=== PATIENT | female | born 1990 | race Caucasian/White ===

== ENCOUNTER 2016-05-04 15:08 | Emergency (ER) | payer MEDICAID ==
[2016-05-04 15:44] VITALS: BP 134/83
--- NOTE | 2016-05-04 16:52 | UC ---
Complaint Female HPI - HPI Summary HPI Summary: LLQ pain for 3 days, no urinary sx, no fever, no nausea, vomiting or diarrhea - History Of Current Complaint Chief Complaint: UCGU Stated Complaint: GROIN PAIN Time Seen by Provider: 05/04/16 16:15 Hx Obtained From: Patient Hx Last Menstrual Period: 04/24/16 ?: No Onset/Duration: Sudden Onset, Lasting Days - 3, Still Present Timing: Constant Severity Initially: Mild Severity Currently: Mild Character: Cramping Aggravating Factor(s): Nothing Alleviating Factor(s): Nothing Associated Signs And Symptoms: Positive: Negative - Allergies/Home Medications Allergies/Adverse Reactions: Allergies Allergy/AdvReac Type Severity Reaction Status Date / Time No Known Allergies Allergy Verified 05/04/16 15:44 PMH/Surg Hx/FS Hx/Imm Hx Previously Healthy: No Endocrine History Of: Denies: Diabetes, Thyroid Disease Cardiovascular History Of: Denies: Cardiac Disorders, Hypertension, Congestive Heart Failure Respiratory History Of: Reports: Asthma, Bronchitis Denies: COPD GI/ History Of: Denies: Ulcer, Renal Disease - Surgical History Surgical History: Yes Surgery Procedure, Year, and Place: 1993 Hernia repair. gallbladder removed January 2013 - Family History Known Family History: Positive: None, Other - mother has ovarian cysts - Social History Occupation: Employed Full-time Lives: With Family Alcohol Use: Occasionally Substance Use Type: None Smoking Status (MU): Former Smoker Type: Cigarettes Have You Smoked in the Last Year: No - Immunization History Most Recent Influenza Vaccination: 04/13/14 Most Recent Tetanus Shot: 05/28/14 Most Recent Pneumonia Vaccination: never Review of Systems Constitutional: Negative Skin: Negative Eyes: Negative ENT: Negative Respiratory: Negative Cardiovascular: Negative Gastrointestinal: Abdominal Pain - LLQ pain Genitourinary: Negative Motor: Negative Neurovascular: Negative Musculoskeletal: Negative Neurological: Negative Psychological: Negative All Other Systems Reviewed And Are Negative: Yes Physical Exam Triage Information Reviewed: Yes Appearance: Well-Appearing, No Pain Distress, Well-Nourished Vital Signs: Initial Vital Signs Temp 98.2 F 05/04/16 15:39 Pulse 71 05/04/16 15:39 Resp 20 05/04/16 15:39 BP 134/83 05/04/16 15:39 Pulse Ox 100 05/04/16 15:39 Vital Signs Reviewed: Yes Eye Exam: Normal Eyes: Positive: Conjunctiva Clear ENT Exam: Normal ENT: Positive: Normal ENT inspection, Hearing grossly normal, Pharynx normal, TMs normal. Negative: Nasal congestion, Nasal drainage, Tonsillar swelling, Tonsillar exudate, Trismus, Muffled/hoarse voice Neck exam: Normal Neck: Positive: Supple, Nontender, No Lymphadenopathy Respiratory Exam: Normal Respiratory: Positive: Chest non-tender, Lungs clear, Normal breath sounds, No respiratory distress, No accessory muscle use, Respiratory distress Cardiovascular Exam: Normal Cardiovascular: Positive: RRR, No Murmur, Pulses Normal, Brisk Capillary Refill Abdominal Exam: Normal Abdomen Description: Positive: No Organomegaly, Soft, Other: - llq mild discomfort Bowel Sounds: Positive: Present Musculoskeletal Exam: Normal Musculoskeletal: Positive: Strength Intact, ROM Intact, No Edema Neurological Exam: Normal Neurological: Positive: Alert, Muscle Tone Normal Psychological Exam: Normal Psychological: Positive: Normal Response To Family, Age Appropriate Behavior Skin Exam: Normal UC Physical Exam Vital Signs On Initial Exam: Initial Vitals Temp Pulse Resp BP Pulse Ox 98.2 F 71 20 134/83 100 05/04/16 15:39 05/04/16 15:39 05/04/16 15:39 05/04/16 15:39 05/04/16 15:39 - Genitalia Exam Female Genitourinary: Normal External Exam, Normal Vaginal Exam, Left Ovary Tender - no uterine tenderness, minimal llq discomfort Diagnostics - Laboratory Diagnostic Studies Completed/Ordered: ua-25 leuks, Re-Evaluation - Re-Evaluation First Eval Change: Unchanged - tolerated vaginal examination well no cervical motion tenderness, minimal llq tenderness, offered to transfer patient to ED for further evaluation --patient refused will follow up with PCP or go to ED for Increase or Change in Symptoms Complaint Female Dx - Differential Dx/Diagnosis Differential Diagnosis/HQI/PQRI: Ovarian Cyst, Ovarian Torsion, Pelvic Inflammatory Disease, Sexually Transmitted Disease, Urinary Tract Infection Provider Diagnoses: LLQ Pain Discharge - Discharge Plan Condition: Stable Disposition: HOME Patient Education Materials: Ibuprofen (By mouth), Ovarian Cyst (ED), Pelvic Pain in Women (ED) Referrals: [facility] [Provider Group] - 2 Days No Primary Care Phys,NOPCP [Primary Care Provider] -
[2016-05-08 15:46] LABS: Mycoplasma hominis Result Negative; Mycoplasma hominis Source URINE; Ureaplasma Source URINE; Ureaplasma parvum PCR Positive; Ureaplasma urealyticum PCR Negative
== END 2016-05-04 16:58 | disposition home or self-care (01) ==
LOC: UCEAST 15:08
DX: R10.32 Left lower quadrant pain (principal); Z90.49 Acquired absence of other specified parts of digestive tract; Z87.891 Personal history of nicotine dependence
CPT/HCPCS: 87480; 87491; 87510; 87591; 87661; 87798; 99212; G0463

== ENCOUNTER 2016-06-30 16:07 | Emergency (ER) | payer MEDICAID ==
[2016-06-30 16:30] VITALS: BP 122/65
--- NOTE | 2016-06-30 17:13 | UC ---
Complaint Female HPI - HPI Summary HPI Summary: had a UTI last month was told it was ureaplasm ---has been getting uti every 2 months for the past year---now uti sx have returned - History Of Current Complaint Chief Complaint: UCGU Stated Complaint: UTI Time Seen by Provider: 06/30/16 16:34 Hx Obtained From: Patient Hx Last Menstrual Period: 06/21/16 ?: No Onset/Duration: Gradual Onset, Lasting Days - 3, Still Present Timing: Constant Severity Initially: Moderate Severity Currently: Moderate Pain Intensity: 5 Pain Scale Used: 0-10 Numeric Character: Burning Aggravating Factor(s): Urination Alleviating Factor(s): Nothing Associated Signs And Symptoms: Positive: Negative - Allergies/Home Medications Allergies/Adverse Reactions: Allergies Allergy/AdvReac Type Severity Reaction Status Date / Time No Known Allergies Allergy Verified 05/04/16 15:44 Home Medications: Home Medications Nuva Ring 1 applic VAGINAL 06/30/16 [History] PMH/Surg Hx/FS Hx/Imm Hx Previously Healthy: No Endocrine History Of: Denies: Diabetes, Thyroid Disease Cardiovascular History Of: Denies: Cardiac Disorders, Hypertension, Congestive Heart Failure Respiratory History Of: Reports: Asthma, Bronchitis Denies: COPD GI/ History Of: Denies: Ulcer, Renal Disease - Surgical History Surgical History: Yes Surgery Procedure, Year, and Place: 1993 Hernia repair. gallbladder removed January 2013 - Family History Known Family History: Positive: None, Other - mother has ovarian cysts - Social History Occupation: Employed Full-time Lives: With Family Alcohol Use: Occasionally Substance Use Type: None Smoking Status (MU): Never Smoked Tobacco Type: Cigarettes Have You Smoked in the Last Year: No - Immunization History Most Recent Influenza Vaccination: 04/13/14 Most Recent Tetanus Shot: 05/28/14 Most Recent Pneumonia Vaccination: never Review of Systems Constitutional: Negative Skin: Negative Eyes: Negative ENT: Negative Respiratory: Negative Cardiovascular: Negative Gastrointestinal: Negative Genitourinary: Dysuria, Frequency, Urgency Motor: Negative Neurovascular: Negative Musculoskeletal: Negative Neurological: Negative Psychological: Negative All Other Systems Reviewed And Are Negative: Yes Physical Exam Triage Information Reviewed: Yes Appearance: Well-Appearing, No Pain Distress, Well-Nourished Vital Signs: Initial Vital Signs Temp 98.1 F 06/30/16 16:26 Pulse 73 06/30/16 16:26 Resp 18 06/30/16 16:26 BP 122/65 06/30/16 16:26 Pulse Ox 100 06/30/16 16:26 Eye Exam: Normal Eyes: Positive: Conjunctiva Clear ENT Exam: Normal ENT: Positive: Normal ENT inspection, Hearing grossly normal. Negative: Trismus , Muffled/hoarse voice Neck exam: Normal Neck: Positive: Supple, Nontender, No Lymphadenopathy Respiratory Exam: Normal Respiratory: Positive: Chest non-tender, Lungs clear, Normal breath sounds, No respiratory distress, No accessory muscle use Cardiovascular Exam: Normal Cardiovascular: Positive: RRR, No Murmur, Pulses Normal, Brisk Capillary Refill Abdominal Exam: Normal Abdomen Description: Positive: Nontender, No Organomegaly, Soft. Negative: Bruit, CVA Tenderness (R), CVA Tenderness (L) Musculoskeletal Exam: Normal Musculoskeletal: Positive: Strength Intact, ROM Intact, No Edema Neurological Exam: Normal Neurological: Positive: Alert, Muscle Tone Normal Psychological Exam: Normal Skin Exam: Normal Diagnostics - Laboratory Diagnostic Studies Completed/Ordered: Ua--trace blood Complaint Female Dx - Course Course Of Treatment: lab specimens sent, will repeat rx of dox pending lab results increase fluids, azo, follow with urology - Differential Dx/Diagnosis Differential Diagnosis/HQI/PQRI: Pelvic Inflammatory Disease, Ureteral Stone, Urinary Tract Infection Provider Diagnoses: Dysuria Discharge - Discharge Plan Condition: Stable Disposition: HOME Prescriptions: DOXYcycline CAP(*) [DOXYcycline 100MG CAP(*)] 100 mg PO BID #20 cap Patient Education Materials: Phenazopyridine (By mouth), Urinary Tract Infection in Women (ED) Referrals: [facility] [Provider Group] - 2 Weeks No Primary Care Phys,NOPCP [Primary Care Provider] - Ronald Raphael MD [Medical Doctor] - 2 Weeks
[2016-07-04 14:15] LABS: Mycoplasma hominis Result Negative; Mycoplasma hominis Source URINE; Ureaplasma Source URINE; Ureaplasma parvum PCR Positive; Ureaplasma urealyticum PCR Negative
== END 2016-06-30 17:05 | disposition home or self-care (01) ==
LOC: UCEAST 16:07
DX: R30.0 Dysuria (principal); Z87.440 Personal history of urinary (tract) infections; Z90.49 Acquired absence of other specified parts of digestive tract; Z32.02 Encounter for pregnancy test, result negative
CPT/HCPCS: 81003; 84702; 87086; 87798; 99212; G0463

== ENCOUNTER 2016-10-09 07:23 | Emergency (ER) | payer OTHER ==
[2016-10-09 08:05] VITALS: BP 126/64
[2016-10-09] MEDS ORDERED: Fluconazole 150 MG (NF) 150 MG TAB PO ONE (08:48)
--- NOTE | 2016-10-09 10:29 | UC ---
I, Oh,Tello, scribed for River Laird MD on 10/09/16 at 1029 . Ear Complaint HPI - HPI Summary HPI Summary: This 26 y/o female presents to [facility] for left ear pain that started 1.5 weeks ago and worse since a day ago. Positive intermittent muffled hearing. left ear pain Pt had recently had dental extraction of a caries at lower jaw 2 weeks ago. Abx for 10 days. Muffled hearing. molar already removed. Negative drainage. IBP makes pain better. nonsmoker nondrinker Pt denies any ear pain before or during abstract. Tooth extraction at [facility]. - History of Current Complaint Chief Complaint: UCEar Stated Complaint: EAR PAIN Time Seen by Provider: 10/09/16 08:15 Hx Last Menstrual Period: 09/08/16 - Allergies/Home Medications Allergies/Adverse Reactions: Allergies Allergy/AdvReac Type Severity Reaction Status Date / Time No Known Allergies Allergy Verified 10/09/16 07:50 Home Medications: Home Medications Ibuprofen TAB* [Advil TAB*] 400 mg PO Q6H PRN 10/09/16 [History Confirmed ] PMH/Surg Hx/FS Hx/Imm Hx - Surgical History Surgical History: Yes Surgery Procedure, Year, and Place: 1993 Hernia repair. gallbladder removed January 2013 - Family History Known Family History: Positive: None, Other - mother has ovarian cysts - Social History Alcohol Use: Occasionally Substance Use Type: None Smoking Status (MU): Never Smoked Tobacco Type: Cigarettes Have You Smoked in the Last Year: No - Immunization History Most Recent Influenza Vaccination: 04/13/14 Most Recent Tetanus Shot: 05/28/14 Most Recent Pneumonia Vaccination: never Review of Systems All Other Systems Reviewed And Are Negative: Yes Physical Exam Triage Information Reviewed: Yes Vital Signs: Initial Vital Signs Temp 98.2 F 10/09/16 07:51 Pulse 76 10/09/16 07:51 Resp 16 10/09/16 07:51 BP 126/64 10/09/16 07:51 Pulse Ox 99 10/09/16 07:51 Vital Signs Reviewed: Yes - Additional Comments The patient is well-nourished in no acute distress and in no acute pain. The skin is warm and dry and skin color reflects adequate perfusion. HEENT: The head is normocephalic and atraumatic. The pupils are equal and reactive. The conjunctivae are clear and without drainage. Nares are patent and without drainage. Mouth reveals moist mucous membranes and the throat is without erythema and exudate. Extraction noted without any sing of infection. The external ears are intact. Mild effusion at left ear. The ear canals are patent and without drainage. The tympanic membranes are intact. Negative tenderness over mastoid. Negative swelling of face. Neck is supple with full range of motion and non-tender. There are no carotid bruits. There is no neck vein distension. Respiratory: Chest is non-tender. Lungs are clear to auscultation and breath sounds are symmetrical and equal. Cardiovascular: Hear is regular rate and rhythm. There is no murmur or rub auscultated. There is no peripheral edema and pulses are symmetrical and equal. Abdomen: The abdomen is soft and non-tender. There are normal bowel sounds heard in all four quadrants and there is no organomegaly palpated. Musculoskeletal: There is no back pain noted. Extremities are non-tender with full range of motion. There is good capillary refill. There is no peripheral edema or calf tenderness elicited. Neurological: Patient is alert and oriented to person, place and time. The patient has symmetrical motor strength in all four extremities. Cranial nerves are grossly intact. Deep tendon reflexes are symmetrical and equal in all four extremities. Psychiatric: The patient has an appropriate affect and does not exhibit any anxiety or depression. Ear Complaint Course/Dx - Differential Dx/Diagnosis Differential Diagnosis/HQI/PQRI: Otitis Media, Other - dental abscess Provider Diagnoses: 1) Left ear effusion Discharge - Discharge Plan Condition: Stable Disposition: HOME Prescriptions: Amoxicillin/Clavulanate TAB* [Augmentin TAB 875*] 875 mg PO BID #20 tab Fluconazole [Diflucan 150 MG (NF)] 150 mg PO ONCE #1 tab Patient Education Materials: Amoxicillin/Clavulanate Potassium (By mouth), Earache (ED) Forms: *School Release Referrals: Mary Kay Limon MD [Primary Care Provider] - 2 Days The documentation as recorded by the Tony arias Soohyun accurately reflects the service I personally performed and the decisions made by , River Laird MD.
--- NOTE | 2016-10-11 18:57 | UC ---
I, Oh,Tello, scribed for River Laird MD on 10/09/16 at 1036 . Ear Complaint HPI - HPI Summary HPI Summary: This 26 y/o female presents to [facility] for left ear pain that started 1.5 weeks ago and worse since a day ago. Positive intermittent muffled hearing. Pt had recently had dental extraction of a caries at lower jaw 2 weeks ago. Abx for 10 days. Pt does not have molar. IBP makes pain much better. Nonsmoker, nondrinker. Pt denies any ear pain before or during extraction. Tooth extraction was done at [facility]. - History of Current Complaint Chief Complaint: UCEar Stated Complaint: EAR PAIN Time Seen by Provider: 10/09/16 08:15 Hx Obtained From: Patient Hx Last Menstrual Period: 09/08/16 Onset/Duration: Gradual Onset, Still Present Pain Intensity: 2 Pain Scale Used: 0-10 Numeric - Allergies/Home Medications Allergies/Adverse Reactions: Allergies Allergy/AdvReac Type Severity Reaction Status Date / Time No Known Allergies Allergy Verified 10/09/16 07:50 Home Medications: Home Medications Ibuprofen TAB* [Advil TAB*] 400 mg PO Q6H PRN 10/09/16 [History Confirmed ] PMH/Surg Hx/FS Hx/Imm Hx - Surgical History Surgical History: Yes Surgery Procedure, Year, and Place: 1993 Hernia repair. gallbladder removed January 2013 - Family History Known Family History: Positive: Other - mother has ovarian cysts - Social History Alcohol Use: Occasionally Substance Use Type: None Smoking Status (MU): Never Smoked Tobacco Type: Cigarettes Have You Smoked in the Last Year: No - Immunization History Most Recent Influenza Vaccination: 04/13/14 Most Recent Tetanus Shot: 05/28/14 Most Recent Pneumonia Vaccination: never Review of Systems Constitutional: Negative Skin: Negative Eyes: Negative ENT: Ear Ache - left, Other - Muffled hearing Respiratory: Negative Cardiovascular: Negative Gastrointestinal: Negative Genitourinary: Negative Motor: Negative Neurovascular: Negative Musculoskeletal: Negative Neurological: Negative Psychological: Negative All Other Systems Reviewed And Are Negative: Yes Physical Exam Triage Information Reviewed: Yes Vital Signs: Initial Vital Signs Temp 98.2 F 10/09/16 07:51 Pulse 76 10/09/16 07:51 Resp 16 10/09/16 07:51 BP 126/64 10/09/16 07:51 Pulse Ox 99 10/09/16 07:51 Vital Signs Reviewed: Yes - Additional Comments The patient is well-nourished in no acute distress and in no acute pain. The skin is warm and dry and skin color reflects adequate perfusion. HEENT: The head is normocephalic and atraumatic. The pupils are equal and reactive. The conjunctivae are clear and without drainage. Nares are patent and without drainage. Mouth reveals moist mucous membranes and the throat is without erythema and exudate. Extraction noted without any sing of infection. The external ears are intact. Mild effusion at left ear. The ear canals are patent and without drainage. The tympanic membranes are intact. Negative tenderness over mastoid. Negative swelling of face. Neck is supple with full range of motion and non-tender. There are no carotid bruits. There is no neck vein distension. Respiratory: Chest is non-tender. Lungs are clear to auscultation and breath sounds are symmetrical and equal. Cardiovascular: Hear is regular rate and rhythm. There is no murmur or rub auscultated. There is no peripheral edema and pulses are symmetrical and equal. Abdomen: The abdomen is soft and non-tender. There are normal bowel sounds heard in all four quadrants and there is no organomegaly palpated. Musculoskeletal: There is no back pain noted. Extremities are non-tender with full range of motion. There is good capillary refill. There is no peripheral edema or calf tenderness elicited. Neurological: Patient is alert and oriented to person, place and time. The patient has symmetrical motor strength in all four extremities. Cranial nerves are grossly intact. Deep tendon reflexes are symmetrical and equal in all four extremities. Psychiatric: The patient has an appropriate affect and does not exhibit any anxiety or depression. Ear Complaint Course/Dx - Course Course Of Treatment: Vital signs reviewed and noted nml. Pt presents with left ear pain. Upon examination pt is noted with normal TM with minimal effusion. Pt is discharged with outpatient f/u with PCP. - Differential Dx/Diagnosis Differential Diagnosis/HQI/PQRI: Otitis Media, Other - dental abscess Provider Diagnoses: otitis media Discharge - Discharge Plan Condition: Stable Disposition: HOME Prescriptions: Amoxicillin/Clavulanate TAB* [Augmentin TAB 875*] 875 mg PO BID #20 tab Fluconazole [Diflucan] 1 tab PO ONCE #2 tab Patient Education Materials: Amoxicillin/Clavulanate Potassium (By mouth), Earache (ED) Forms: *School Release Referrals: Mary Kay Limon MD [Primary Care Provider] - 2 Days The documentation as recorded by the Tony arias Soohyun accurately reflects the service I personally performed and the decisions made by me, River Laird MD.
== END 2016-10-09 08:45 | disposition home or self-care (01) ==
LOC: UCEAST 07:23
DX: H65.192 Other acute nonsuppurative otitis media, left ear (principal)
CPT/HCPCS: 99212; G0463

== ENCOUNTER 2017-02-02 11:30 | Emergency (ER) | payer OTHER ==
--- NOTE | 2017-02-02 12:32 | UC ---
Respiratory Complaint HPI - HPI Summary HPI Summary: 1 WEEK OF COUGH DEEP IN HER CHEST. FEELS WHEEZY AND HAS INTERMITTENT SOB. HAS H/ O ASTHMA. NOT USING NEBS THEY MAKER HER SHAKY. IS CURRENTLY EARLY IN FIRST TRIMESTER OF . NO FEVER, ST, N/V/D. EARS FEEL PLUGGED. - History of Current Complaint Chief Complaint: UCGeneralIllness Stated Complaint: URI Time Seen by Provider: 02/02/17 12:19 Hx Obtained From: Patient Hx Last Menstrual Period: 01/06/17 Onset/Duration: Gradual Onset, Lasting Days, Still Present Severity Initially: Moderate Severity Currently: Moderate Pain Intensity: 0 Pain Scale Used: 0-10 Numeric Character: Cough: Productive Aggravating Factors: Nothing Alleviating Factors: Nothing Associated Signs And Symptoms: Positive: Dyspnea, Wheezing. Negative: Fever, Chills, Pleuritic Chest Pain, Hemoptysis, URI, Nasal Congestion, Hoarseness, Sinus Discomfort - Allergies/Home Medications Allergies/Adverse Reactions: Allergies Allergy/AdvReac Type Severity Reaction Status Date / Time No Known Allergies Allergy Verified 02/02/17 12:07 Home Medications: Home Medications Albuterol 2.5MG/3ML (0.083%)* [Ventolin 2.5 MG/3 ML NEB.CARROLL*] 2.5 mg INH Q6H PRN 02/02/17 [History Confirmed 02/02/17] PMH/Surg Hx/FS Hx/Imm Hx Respiratory History: Asthma - Surgical History Surgical History: Yes Surgery Procedure, Year, and Place: 1993 Hernia repair. gallbladder removed January 2013 - Family History Known Family History: Positive: Other - mother has ovarian cysts Negative: Hypertension - Social History Alcohol Use: None Substance Use Type: None Smoking Status (MU): Never Smoked Tobacco Type: Cigarettes Have You Smoked in the Last Year: No - Immunization History Most Recent Influenza Vaccination: 04/13/14 Most Recent Tetanus Shot: 05/28/14 Most Recent Pneumonia Vaccination: never Review of Systems Constitutional: Negative ENT: Negative Respiratory: Shortness Of Breath, Cough Cardiovascular: Negative Gastrointestinal: Negative All Other Systems Reviewed And Are Negative: Yes Physical Exam Triage Information Reviewed: Yes Appearance: Well-Appearing, No Pain Distress, Well-Nourished Vital Signs: Initial Vital Signs Temp 98.3 F 02/02/17 12:09 Pulse 77 02/02/17 12:09 Resp 22 10/13/17 12:09 BP 141/55 02/02/17 12:09 Pulse Ox 98 02/02/17 12:09 Vital Signs Reviewed: Yes Eyes: Positive: Conjunctiva Clear ENT: Positive: Hearing grossly normal, Pharynx normal, TMs normal Neck: Positive: Supple, Nontender, No Lymphadenopathy Respiratory: Positive: No respiratory distress, No accessory muscle use, Decreased breath sounds, Wheezing - DIFFUSE Cardiovascular Exam: Normal Abdomen Description: Positive: Soft Musculoskeletal: Positive: No Edema Neurological: Positive: Alert Psychological: Positive: Age Appropriate Behavior Skin: Negative: rashes UC Diagnostic Evaluation - Laboratory O2 Sat by Pulse Oximetry: 98 Respiratory Course/Dx - Course Course Of Treatment: ACCORDING TO UP TO DATE BENEFITS OF STEROIDS IN TREATMENT OF ACUTE ASTHMA SX DURING OUTWEIGH ANY POSSIBLE RISK TO FETUS. WILL TX WITH SHORT COURSE PREDNISONE AND GIVE ALBUTEROL INHALER. - Differential Dx/Diagnosis Provider Diagnoses: ACUTE BRONCHITIS WITH BRONCHOSPASM Discharge - Discharge Plan Condition: Stable Disposition: HOME Prescriptions: Albuterol HFA INHALER* [Ventolin HFA Inhaler*] 2 puff INH Q4H PRN #1 mdi PRN Reason: Shortness Of Breath predniSONE TAB* [Deltasone TAB*] 40 mg PO DAILY #10 tab Patient Education Materials: Acute Bronchitis (ED), Bronchospasm (ED) Forms: *Work Release Referrals: Mary Kay Limon MD [Primary Care Provider] - If Needed Additional Instructions: GIVEN YOUR WHEEZE AND SENSATION OF SHORTNESS OF BREATH THE BENEFITS OF TREATMENT WITH STEROIDS TO PREVENT PROGRESSION OF YOUR SYMPTOMS OUTWEIGH ANY POTENTIAL RISK TO THE FETUS. SEEK FOLLOW-UP IF YOU ARE NOT IMPROVING EXPECTED. YOUR REPEAT BP TODAY WAS 128/72 WHICH IS GOOD.
[2017-02-02 12:40] VITALS: BP 128/72
== END 2017-02-02 12:47 | disposition home or self-care (01) ==
LOC: UCEAST 11:30
DX: S73.101A Unspecified sprain of right hip, initial encounter (principal); V47.5XXA Car driver injured in collision with fixed or stationary object in traffic accident, initial encounter; Y93.9 Activity, unspecified; Y92.410 Unspecified street and highway as the place of occurrence of the external cause; Y99.9 Unspecified external cause status
CPT/HCPCS: 99212; G0463

== ENCOUNTER 2017-04-22 03:38 | Emergency (ER) | payer OTHER ==
[2017-04-22] MEDS ORDERED: NS 0.9% 1000 ML* 1,000 ML IV ONE (04:04)
[2017-04-22 04:38] LABS: Urine Appearance Cloudy; Urine Blood 3+ (Negative); Urine Color Yellow; Urine Ketones 1+ (Negative); Urine Protein 1+(30 mg/dL) (Negative); Urine Urobilinogen Negative (Negative)
[2017-04-22 04:39] LABS: ABS Basophils 0 10^3/ul (0-0.2); ABS Eosinophils 0.5 10^3/ul (0-0.6); ABS Lymphocytes 1.7 10^3/ul (1.0-4.8); ABS Monocytes 0.5 10^3/ul (0-0.8); ABS Neutrophils 4.8 10^3/ul (1.5-7.7); ABS Nucleated RBC 0.01 10^3/ul; Eosinophil % 6.4 % (0-6); Hematocrit 35 % (35-47); Hemoglobin 12.2 g/dl (12.0-16.0); Lymphocyte % 22.6 % (25-47); Mean Corpuscular HGB Conc 35 g/dl (31-36); Mean Corpuscular Hemoglobin 31 pg (27-31); Mean Corpuscular Volume 88 fL (80-97); Mean Platelet Volume 8 um3 (7.4-10.4); Nucleated Red Blood Cells % 0.1; Platelet Count 269 10^3/ul (150-450); Red Cell Distribution Width 13 % (10.5-15); White Blood Count 7.5 10^3/ul (3.5-10.8)
[2017-04-22 04:43] LABS: INR 0.92 (0.77-1.02)
[2017-04-22 04:48] LABS: EGFR Non-African American 161.5 (>60)
--- NOTE | 2017-04-22 06:12 | ED ---
Dorinda Chapin Gabriel, scribed for Francisco Jain on 04/22/17 at 0359 . Abdominal Pain/Female - HPI Summary HPI Summary: This patient is a 27 year old F presenting to [facility] accompanied by her boyfriend with a chief complaint of ABD pain since 0200 this morning. Patient reports vaginal bleeding with clots, dizziness, and cramping. Patient is 15 weeks along in her with her last sonogram being 3 weeks ago. She states the sonogram was normal, denies injury, and her due date is october 17. - History of Current Complaint Chief Complaint: EDAbdPain Stated Complaint: 15 WKS PREG/VAGINAL BLEEDING Time Seen by Provider: 04/22/17 03:48 Hx Obtained From: Patient Hx Last Menstrual Period: 01/06/17 Onset/Duration: Sudden Onset, Lasting Hours - 3, Still Present Timing: Constant Severity Initially: Moderate Severity Currently: Moderate Associated Signs and Symptoms: Positive: Other: - vaginal bleeding with clots, dizziness, and cramping Allergies/Adverse Reactions: Allergies Allergy/AdvReac Type Severity Reaction Status Date / Time No Known Allergies Allergy Verified 02/20/17 07:11 PMH/Surg Hx/FS Hx/Imm Hx Endocrine/Hematology History: Denies: Hx Diabetes, Hx Systemic Lupus Erythematosus, Hx Thyroid Disease Cardiovascular History: Denies: Hx Congestive Heart Failure, Hx Hypertension Respiratory History: Reports: Hx Asthma Denies: Hx Chronic Obstructive Pulmonary Disease (COPD) GI History: Denies: Hx Ulcer History: Reports: Other Problems/Disorders - gall stones Denies: Hx Renal Disease Musculoskeletal History: Denies: Hx Rheumatoid Arthritis Sensory History: Reports: Hx Contacts or Glasses Denies: Hx Hearing Aid Opthamlomology History: Reports: Hx Contacts or Glasses - Cancer History Hx Chemotherapy: No - Surgical History Surgery Procedure, Year, and Place: 1993 Hernia repair. gallbladder removed January 2013 Hx Anesthesia Reactions: No Infectious Disease History: No Infectious Disease History: Denies: Hx Clostridium Difficile, Hx Hepatitis, Hx Human Immunodeficiency Virus (HIV), Hx of Known/Suspected MRSA, Hx Shingles, Hx Tuberculosis, Hx Known/ Suspected VRE, Hx Known/Suspected VRSA, History Other Infectious Disease - Family History Known Family History: Positive: Other - mother has ovarian cysts Negative: Hypertension - Social History Alcohol Use: None Hx Substance Use: No Substance Use Type: Reports: None Hx Tobacco Use: No Smoking Status (MU): Never Smoked Tobacco Type: Cigarettes Have You Smoked in the Last Year: No Review of Systems Positive: other - vaginal bleeding with clots and cramping Neurological: Other - dizziness All Other Systems Reviewed And Are Negative: Yes Physical Exam - Summary Physical Exam Summary: Appearance: Well appearing, no pain distress Skin: warm, dry, reflects adequate perfusion Head/face: normal Eyes: EOMI, JORDYN ENT: normal Neck: supple, non-tender Respiratory: CTA, breath sounds present Cardiovascular: RRR, pulses symmetrical Abdomen: non-tender, soft, uterus distended Bowel: present Musculoskeletal: normal, strength/ROM intact Neuro: normal, sensory motor intact, A&Ox3 Triage Information Reviewed: Yes Vital Signs On Initial Exam: Initial Vitals BP 119/68 04/22/17 03:57 Vital Signs Reviewed: Yes Diagnostics - Vital Signs Vital Signs Pulse BP Pulse Ox 04/22/17 05:42 90 100 04/22/17 05:40 108/68 04/22/17 04:29 78 97 04/22/17 04:00 96 128/77 97 04/22/17 03:57 119/68 - Laboratory Lab Results: Lab Results 04/22/17 04/22/17 04/22/17 Range/Units 04:00 04:10 04:10 WBC 7.5 (3.5-10.8) 10^3/ul RBC 4.00 (4.0-5.4) 10^6/ul Hgb 12.2 (12.0-16.0) g/dl Hct 35 (35-47) % MCV 88 (80-97) fL MCH 31 (27-31) pg MCHC 35 (31-36) g/dl RDW 13 (10.5-15) % Plt Count 269 (150-450) 10^3/ul MPV 8 (7.4-10.4) um3 Neut % (Auto) 64.0 (38-83) % Lymph % (Auto) 22.6 L (25-47) % [place] % (Auto) 6.4 (1-9) % Eos % (Auto) 6.4 H (0-6) % Baso % (Auto) 0.6 (0-2) % Absolute Neuts (auto) 4.8 (1.5-7.7) 10^3/ul Absolute Lymphs (auto) 1.7 (1.0-4.8) 10^3/ul Absolute Monos (auto) 0.5 (0-0.8) 10^3/ul Absolute Eos (auto) 0.5 (0-0.6) 10^3/ul Absolute Basos (auto) 0 (0-0.2) 10^3/ul Absolute Nucleated RBC 0.01 10^3/ul Nucleated RBC % 0.1 INR (Anticoag Therapy) 0.92 (0.77-1.02) APTT 29.6 (26.0-36.3) seconds Sodium (133-145) mmol/L Potassium (3.5-5.0) mmol/L Chloride (101-111) mmol/L Carbon Dioxide (22-32) mmol/L Anion Gap (2-11) mmol/L BUN (6-24) mg/dL Creatinine (0.51-0.95) mg/dL Est GFR ( Amer) (>60) Est GFR (Non-Af Amer) (>60) BUN/Creatinine Ratio (8-20) Glucose (70-100) mg/dL Calcium (8.6-10.3) mg/dL Total Bilirubin (0.2-1.0) mg/dL AST (13-39) U/L ALT (7-52) U/L Alkaline Phosphatase (34-104) U/L Total Protein (6.4-8.9) g/dL Albumin (3.2-5.2) g/dL Globulin (2-4) g/dL Albumin/Globulin Ratio (1-3) Beta HCG, Quant mIU/mL Urine Color Yellow Urine Appearance Cloudy Urine pH 5.0 (5-9) Ur Specific [place] 1.030 (1.010-1.030) Urine Protein 1+(30 mg/dl) H (Negative) Urine Ketones 1+ H (Negative) Urine Blood 3+ H (Negative) Urine Nitrate Negative (Negative) Urine Bilirubin Negative (Negative) Urine Urobilinogen Negative (Negative) Ur Leukocyte Esterase Negative (Negative) Urine WBC (Auto) Trace(0-5/hpf) (Absent) Urine RBC (Auto) 1+(3-5/hpf) H (Absent) Ur Squamous Epith Cells Present H (Absent) Urine Bacteria Absent (Absent) Urine Glucose Negative (Negative) Blood Type Antibody Screen 04/22/17 04/22/17 Range/Units 04:10 04:10 WBC (3.5-10.8) 10^3/ul RBC (4.0-5.4) 10^6/ul Hgb (12.0-16.0) g/dl Hct (35-47) % MCV (80-97) fL MCH (27-31) pg MCHC (31-36) g/dl RDW (10.5-15) % Plt Count (150-450) 10^3/ul MPV (7.4-10.4) um3 Neut % (Auto) (38-83) % Lymph % (Auto) (25-47) % [place] % (Auto) (1-9) % Eos % (Auto) (0-6) % Baso % (Auto) (0-2) % Absolute Neuts (auto) (1.5-7.7) 10^3/ul Absolute Lymphs (auto) (1.0-4.8) 10^3/ul Absolute Monos (auto) (0-0.8) 10^3/ul Absolute Eos (auto) (0-0.6) 10^3/ul Absolute Basos (auto) (0-0.2) 10^3/ul Absolute Nucleated RBC 10^3/ul Nucleated RBC % INR (Anticoag Therapy) (0.77-1.02) APTT (26.0-36.3) seconds Sodium 133 (133-145) mmol/L Potassium 3.5 (3.5-5.0) mmol/L Chloride 103 (101-111) mmol/L Carbon Dioxide 23 (22-32) mmol/L Anion Gap 7 (2-11) mmol/L BUN 7 (6-24) mg/dL Creatinine 0.47 L (0.51-0.95) mg/dL Est GFR ( Amer) 207.6 (>60) Est GFR (Non-Af Amer) 161.5 (>60) BUN/Creatinine Ratio 14.9 (8-20) Glucose 99 (70-100) mg/dL Calcium 8.6 (8.6-10.3) mg/dL Total Bilirubin 0.30 (0.2-1.0) mg/dL AST 12 L (13-39) U/L ALT 10 (7-52) U/L Alkaline Phosphatase 46 (34-104) U/L Total Protein 6.5 (6.4-8.9) g/dL Albumin 3.5 (3.2-5.2) g/dL Globulin 3.0 (2-4) g/dL Albumin/Globulin Ratio 1.2 (1-3) Beta HCG, Quant 84922.00 mIU/mL Urine Color Urine Appearance Urine pH (5-9) Ur Specific [place] (1.010-1.030) Urine Protein (Negative) Urine Ketones (Negative) Urine Blood (Negative) Urine Nitrate (Negative) Urine Bilirubin (Negative) Urine Urobilinogen (Negative) Ur Leukocyte Esterase (Negative) Urine WBC (Auto) (Absent) Urine RBC (Auto) (Absent) Ur Squamous Epith Cells (Absent) Urine Bacteria (Absent) Urine Glucose (Negative) Blood Type O Positive Antibody Screen Negative Result Diagrams: 04/22/17 04:10 04/22/17 04:10 Lab Statement: Any lab studies that have been ordered have been reviewed, and results considered in the medical decision making process. Abdominal Pain Fem Course/Dx - Diagnoses Provider Diagnoses: Threatened Discharge - Discharge Plan Condition: Stable Disposition: OTHER Discharge Disposition Comment: Patient is signed out to Dr. Benitez, pending disposition, awaiting US Referrals: Mary Kay Limon MD [Primary Care Provider] - The documentation as recorded by the Dorinda arias Gabriel accurately reflects the service I personally performed and the decisions made by , Francisco Jain.
--- NOTE | 2017-04-22 08:36 | RAD ---
INDICATION: Bleeding in a pelvic female Comparison: None Multiple transabdominal real time images of the gravid uterus were obtained. This exam demonstrates a single intrauterine in the head to the right transverse presentation. heart and limb motion were noted. The heart rate was 140 beats per minute. The placenta was located anterior. There is no placenta previa. The amniotic fluid volume appeared to be within normal limits measuring up to 11.9 cm. Biparietal diameter (cm) 2.99 which corresponds to a gestational age of 15 weeks and 4 days. Head circumference (cm) 11.16 which corresponds to a gestational age of 15 weeks and 3 days. abdominal circumference(cm) 9.09 which corresponds to a gestational age of 15 weeks and 2 days. femur length (cm) 1.74 which corresponds to a gestational age of 15 weeks and 2 days. The composite estimated gestational age was 15 weeks and 3 days. The estimated weight at this time is 119 grams +/- 17 grams. IMPRESSION: Normal-appearing single intrauterine gestation with a average gestational age of 15 weeks and 3 days.
[2017-04-22 09:46] VITALS: BP 102/60
--- NOTE | 2017-04-22 10:15 | ED ---
Abundio Chapin Tecjoon, scribed for Juan Miguel Benitez MD on 04/22/17 at 0926 . Progress - Progress Note Progress Note: This patient was signed out by Dr. Jain at end of shift, awaiting US . US reveals, per radiologist, IMPRESSION: Normal-appearing single intrauterine gestation with a average gestational age of 15 weeks and 3 days. ED physician has reviewed this radiology report. Course/Dx - Course Course Of Treatment: This patient is a 27 year old F presenting to [facility] accompanied by her boyfriend with a chief complaint of ABD pain since 0200 this morning. Patient reports vaginal bleeding with clots, dizziness, and cramping. Patient is 15 weeks along in her with her last sonogram being 3 weeks ago. She states the sonogram was normal, denies injury, and her due date is october 17. Bloodwork is without significant abnormalities. US reveals, per radiologist, IMPRESSION: Normal-appearing single intrauterine gestation with a average gestational age of 15 weeks and 3 days. ED physician has reviewed this radiology report. Patient has no other complaints. She reports she has no more vaginal bleeding. Declined vaginal exam. She was instructed to be at bed rest and no intercourse until cleared by nurse midwife/clinical instructor. Patient will be discharged with a diagnosis of threatened /miscarriage. Patient will be written a note for work, until she is seen by a tub tender for clearance. - Diagnoses Provider Diagnoses: Threatened The documentation as recorded by the Abundio arias Tecjoon accurately reflects the service I personally performed and the decisions made by Emmanuel erazo Walter, MD.
== END 2017-04-22 09:45 ==
LOC: ED 03:38
DX: O20.0 Threatened abortion (principal); Z3A.15 15 weeks gestation of pregnancy
CPT/HCPCS: 36415; 76815; 80053; 81003; 81015; 84702; 85025; 85610; 85730; 86850; 86900; 86901; 99282

== ENCOUNTER 2017-06-15 16:44 | Emergency (ER) | payer OTHER ==
[2017-06-15 21:26] VITALS: BP 0/0
== END 2017-06-15 20:45 | disposition left against medical advice (07) ==
LOC: ED 16:44
DX: R11.10 Vomiting, unspecified (principal); Z53.21 Procedure and treatment not carried out due to patient leaving prior to being seen by health care provider

== ENCOUNTER 2017-09-28 16:57 | Inpatient (IN) | payer OTHER ==
[2017-09-28 17:56] LABS: Urine Appearance Clear; Urine Blood Negative (Negative); Urine Color Yellow; Urine Ketones Negative (Negative); Urine Protein Negative (Negative); Urine Specific Gravity 1.013 (1.010-1.030); Urine Urobilinogen Negative (Negative)
[2017-09-28] MEDS ORDERED: Dinoprostone* 10 MG VAG.SUPP VAGINAL ONE (18:26)
[2017-09-28 19:11] LABS: ABS Basophils 0.1 10^3/ul (0-0.2); ABS Eosinophils 0.4 10^3/ul (0-0.6); ABS Lymphocytes 3.3 10^3/ul (1.0-4.8); ABS Monocytes 0.7 10^3/ul (0-0.8); ABS Neutrophils 6.7 10^3/ul (1.5-7.7); ABS Nucleated RBC 0 10^3/ul; Eosinophil % 3.4 % (0-6); Hematocrit 36 % (35-47); Hemoglobin 12.1 g/dl (12.0-16.0); Lymphocyte % 29.9 % (25-47); Mean Corpuscular HGB Conc 34 g/dl (31-36); Mean Corpuscular Hemoglobin 29 pg (27-31); Mean Corpuscular Volume 86 fL (80-97); Mean Platelet Volume 7.6 um3 (7.4-10.4); Nucleated Red Blood Cells % 0; Platelet Count 282 10^3/ul (150-450); Red Blood Count 4.17 10^6/ul (4.0-5.4); Red Cell Distribution Width 14 % (10.5-15); White Blood Count 11.2 10^3/ul (3.5-10.8)
[2017-09-28] MEDS ORDERED: Acetaminophen TAB* 325 MG PO PRN (19:28)
--- NOTE | 2017-09-28 19:48 | HP ---
General Information - General Information Maternal Age: 27 Grav: 3 Para: 2 SAB: 0 IEA: 0 Estimated Due Date: 10/12/17 Determined By: LMP Gestational Age in Weeks and Days: 38 Weeks and 0 Days Maternal Blood Type and Rh: O Positive - Results this Serology/RPR Result: Non-Reactive Rubella Result: Immune HBsAg Result: Negative HIV Result: Negative GBS Culture Result: Negative Past Medical History Delivery History: Hx Uncomplicated Vaginal Delivery Past Medical History Comment: asthma Past Surgical History Comment: fabiola madden 01/2013, inguinal hernia repair (right) 1996 Pertinent Family History: See Records - Antepartal Records Antepartal Records: Reviewed, Complicated by: - proteinuria, headache Review of Systems Constitutional: Comfortable CV Complaint: No Respiratory: Shortness of Breath: No Genitourinary: No Leaking Fluid Musculoskeletal: No Complaint Neurological: No Visual Changes - Comments headache since 10am, not responsive to Tylenol, percocet Exam Allergies/Adverse Reactions: Allergies No Known Allergies Allergy (Verified 08/09/17 17:17) Lab Values - Entire Visit: Laboratory Tests 09/28/17 09/28/17 09/28/17 17:20 18:50 18:50 WBC 11.2 H RBC 4.17 Hgb 12.1 Hct 36 MCV 86 MCH 29 MCHC 34 RDW 14 Plt Count 282 MPV 7.6 Neut % (Auto) 60.2 Lymph % (Auto) 29.9 [place] % (Auto) 6.0 Eos % (Auto) 3.4 Baso % (Auto) 0.5 Absolute Neuts (auto) 6.7 Absolute Lymphs (auto) 3.3 Absolute Monos (auto) 0.7 Absolute Eos (auto) 0.4 Absolute Basos (auto) 0.1 Absolute Nucleated RBC 0 Nucleated RBC % 0 Urine Color Yellow Urine Appearance Clear Urine pH 7.0 Ur Specific [place] 1.013 Urine Protein Negative Urine Ketones Negative Urine Blood Negative Urine Nitrate Negative Urine Bilirubin Negative Urine Urobilinogen Negative Ur Leukocyte Esterase 1+ A Urine WBC (Auto) Trace(0-5/hpf) Urine RBC (Auto) Absent Ur Squamous Epith Cells Present A Urine Bacteria Absent Urine Glucose Negative Blood Type O Positive Antibody Screen Negative - Measurements Height: 5 ft 2 in Weight: 208 lb Weight in lbs: 208 Body Mass Index (BMI): 38.0 Pre- Weight: 220 lb Weight Gained This : -12 lbs and 0 ozs - Exam Breast: - - soft, no masses Extremities: No Edema Heart: Normal Rhythm/Heart Sounds HEENT: No Significant Findings Lungs: Clear Bilaterally Reflexes: DTR 2+ Thyroid: No Thyromegaly - Abdominal Exam Abdomen Exam: Non-Tender - Ultrasound/Biophysical Profile Ultrasound Status: Not Done Targeted Exam Findings See L&D Outpatient Visit Provider Note for Findings: N/A Estimated Weight: 7 lbs Cervical Exam: 2cm Effacement: Thick Station: -3 Presenting Part: Vertex Membrane Status: Intact EFM Findings - External Monitor Findings Baseline Heart Rate: 140 External Monitor Findings: Accelerations Present, No Pattern of Variable or Late Decelerations, Variability Moderate External Monitor Findings Comment: category 1 Contractions: Irregular, Mild Assessment/Plan - Plan Plan: Induction, Cervical Ripening Plan Comment: IUP at 38 wks with persistent headache, proteinuria Dr. Ladd recommends delivery, pt agreeable Cervidil placed at 1935 Will monitor per protocol, induce in am - Date/Time of Admission Date of Admission: 09/28/17 Time of Admission: 18:15
[2017-09-28 19:56] LABS: EGFR Non-African American 174.2 (>60); Uric Acid 5.2 mg/dL (2.3-6.6)
[2017-09-29] MEDS ORDERED: Calcium Carbonate CHEW TAB* 500 MG (TUMS) PO PRN (03:35)
[2017-09-29] MEDS ORDERED: Oxytocin in LR* 20 UNITS/1,000 ML BAG IVPB ONE (10:29)
[2017-09-29] MEDS ORDERED: Oxytocin in LR* 20 UNITS/1,000 ML BAG IVPB SCH ×3 (10:30→17:00)
[2017-09-29] MEDS ORDERED: OBEPIDURAL* 250 ML EPIDURAL ONE (11:32)
[2017-09-29] MEDS ORDERED: Famotidine TAB* 20 MG PO PRN (12:33)
[2017-09-29] MEDS ORDERED: Sodium Citrate/Citric Acid* 15 ML UDC PO PRN (12:33)
[2017-09-29] MEDS ORDERED: EPHEDrine (Pressors)* 50 MG/ML VIAL IV PUSH PRN ×2 (12:33)
[2017-09-29] MEDS ORDERED: Phenylephrine IV* 40 MCG/ML 10 ML SYRINGE IV PUSH PRN ×2 (12:33)
[2017-09-29] MEDS ORDERED: Ondansetron INJ* 2 MG/ML VIAL IV ONE (12:51)
[2017-09-29] MEDS ORDERED: OBEPIDURAL* 250 ML EPIDURAL SCH (13:00)
[2017-09-29] MEDS ORDERED: Glycerin ADULT SUPP PR PRN (16:15)
[2017-09-29] MEDS ORDERED: Dibucaine 1% 28.35 GM TUBE PR PRN (16:15)
[2017-09-29] MEDS ORDERED: Witch Hazel PAD* JAR TOPICAL PRN (16:15)
[2017-09-29] MEDS ORDERED: Acetaminophen TAB* 325 MG PO PRN (16:15)
[2017-09-29] MEDS: Ibuprofen TAB* 600 MG PO PRN ×2 (16:42→22:30)
[2017-09-29] MEDS ORDERED: Simethicone TAB* 80 MG TAB.CHEW PO SCH (17:30)
[2017-09-29] MEDS: Docusate CAP* 100 MG PO SCH (21:35)
[2017-09-30] MEDS: Ibuprofen TAB* 600 MG PO PRN ×2 (04:30→10:34)
[2017-09-30 07:32] LABS: ABS Basophils 0.1 10^3/ul (0-0.2); ABS Eosinophils 0.3 10^3/ul (0-0.6); ABS Lymphocytes 2.4 10^3/ul (1.0-4.8); ABS Monocytes 0.7 10^3/ul (0-0.8); ABS Neutrophils 6.1 10^3/ul (1.5-7.7); ABS Nucleated RBC 0 10^3/ul; Eosinophil % 3.3 % (0-6); Hematocrit 34 % (35-47); Hemoglobin 11.8 g/dl (12.0-16.0); Lymphocyte % 24.9 % (25-47); Mean Corpuscular HGB Conc 34 g/dl (31-36); Mean Corpuscular Hemoglobin 30 pg (27-31); Mean Corpuscular Volume 87 fL (80-97); Mean Platelet Volume 7.4 um3 (7.4-10.4); Nucleated Red Blood Cells % 0; Platelet Count 251 10^3/ul (150-450); Red Blood Count 3.94 10^6/ul (4.0-5.4); Red Cell Distribution Width 14 % (10.5-15); White Blood Count 9.5 10^3/ul (3.5-10.8)
[2017-09-30 08:50] VITALS: BP 102/75
[2017-09-30] MEDS ORDERED: Ferrous Gluconate TAB* 324 MG TAB PO SCH (09:00)
[2017-09-30] MEDS: Docusate CAP* 100 MG PO SCH ×2 (09:15→15:26)
== END 2017-09-30 17:18 | disposition home or self-care (01) | DRG 560 ==
LOC: MCHOBOUT 16:57 → MCHOB 18:22
PROVIDERS: ADMIT Midwife; ATTEND Midwife
PROC: 10E0XZZ Delivery of Products of Conception, External Approach (ICD-10-PCS; principal; 2017-09-29)
PROC: 3E033VJ Introduction of Other Hormone into Peripheral Vein, Percutaneous Approach (ICD-10-PCS; 2017-09-29)
PROC: 10907ZC Drainage of Amniotic Fluid, Therapeutic from Products of Conception, Via Natural or Artificial Opening (ICD-10-PCS; 2017-09-29)
DX: O14.94 Unspecified pre-eclampsia, complicating childbirth (principal); O69.89X0 Labor and delivery complicated by other cord complications, not applicable or unspecified; G44.89 Other headache syndrome; Z3A.38 38 weeks gestation of pregnancy; Z37.0 Single live birth
CPT/HCPCS: 36415; 80053; 81003; 81015; 84550; 85025; 86850; 86900; 86901; 87077; 87086; A9270-GY; J2405

== ENCOUNTER 2018-06-25 07:40 | Emergency (ER) | payer OTHER ==
[2018-06-25] MEDS ORDERED: GuaiFENesin DM* 5 ML UDC PO ONE (08:07)
--- OUTSIDE RECORDS SUMMARY | 2018-06-25 08:10 | XMS REPORT | Continuity of Care Document ---
:1990 External Reference #:[id number] Author Name Yuliana Acuna O.D. Address [address] [place] [address] Care Team Providers Name Role Phone Mary Kay Limon M.D. Primary Care Physician Unavailable Payers Date Identification Numbers Payment Provider Subscriber Policy Number: [id number] [employer] Glenna Gusman PayID: [id number] [place] [address] Advance Directives Description No Information Available Problems Date Description Provider Status Onset: Pre-eclampsia Active Onset: 06/15/2018 Myopia Yuliana Acuna O.D. Active Family History Date Family Member(s) Observation Comments Father No Current Problems Mother No Current Problems Social History Type Date Description Comments Sex Unknown Marital Status Legal Status: Occupation Clinical Asst Work Status Part-Time Employment ETOH Use Denies alcohol use Tobacco Use Start: Unknown End: Unknown Patient is a former smoker Recreational Drug Use Denies Drug Use Smoking Status Reviewed: 06/15/18 Patient is a former smoker Allergies, Adverse Reactions, Alerts Description No Known Drug Allergies Medications Medication Date Status Form Strength Qnty SIG Indications Ordering Provider Aspirin Adult Active Tablets DR 81mg Unknown Low Dose 0 Immunizations Description No Information Available Vital Signs Description No Information Available Results Description No Information Available Procedures Description No Information Available Encounters Description No Information Available Plan of Treatment Future Appointment(s):06/21/2019 11:30 am - Yuliana Acuna O.D. at [facility] MD, 06/15/2018 - Yuliana Acuna O.D.[id number] Myopia, bilateralComments: Smoking can increase the risk of developing or worsening any eye related disease , as well as affect your overall health. If you are a smoker, we strongly recommend that you quit.If you are not a smoker, we strongly recommend that you do not start. You have Myopia, or near sightedness. I have given you a prescription for glasses and contactsFollow up:1 year You can expect to have your eyes dilated at your next visit. If Dr. Acuna orders any additional testing, it may require extra time. We recommend that you bring sunglasses, as dilation drops often make you light sensitive until they wear off. We always recommend you bring someone to drive you home if you are uncomfortable driving with your eyes dilated. If you have any questions before your next visit, feel free to call our office at .
[2018-06-25] MEDS ORDERED: Albuterol HFA INHALER* 8 gm MDI INH ONE (08:53)
--- NOTE | 2018-06-25 08:56 | ED ---
Respiratory - HPI Summary HPI Summary: Patient is a 28-year-old female who presents to the ED with cough and congestion 7 days. She states she is 28 weeks . She has been using [id number] Mucinex with minimal relief. Cough is with a small amount of production intermittently. She states she takes a baby aspirin daily to prevent preeclampsia. She denies any other significant PMH. She states she is otherwise healthy. Patient is a nonsmoker. She found out she was when she was 20 weeks and just recently started care approximate 7-8 weeks ago. She endorses mild rhinorrhea, denies any headache. Denies any neck pain or photophobia. She endorses SOB, however only with coughing. - History of Current Complaint Chief Complaint: EDUpperRespComplaint Stated Complaint: SOB/COUGHING Time Seen by Provider: 06/25/18 07:45 Hx Obtained From: Patient Onset/Duration: Sudden Onset Timing: Constant Initial Severity: Moderate Current Severity: Moderate Pain Intensity: 5 Character: Wheezing, Cough (Productive) Sputum Amount: Scant Sputum Color: Clear Aggravating Factor(s): URI Alleviating Factor(s): Nothing Associated Signs and Symptoms: Negative - Risk Factors Status Asthmaticus Risk Factors: Negative Pulmonary Embolism Risk Factors: Cardiac Risk Factors: Negative Pseudomonas Risk Factors: Negative Tuberculosis Risk Factors: Negative - Allergy/Home Medications Allergies/Adverse Reactions: Allergies Allergy/AdvReac Type Severity Reaction Status Date / Time No Known Allergies Allergy Verified 06/25/18 07:41 PMH/Surg Hx/FS Hx/Imm Hx Previously Healthy: Yes Endocrine/Hematology History: Denies: Hx Diabetes, Hx Systemic Lupus Erythematosus, Hx Thyroid Disease Cardiovascular History: Denies: Hx Congestive Heart Failure, Hx Hypertension Respiratory History: Reports: Hx Asthma Denies: Hx Chronic Obstructive Pulmonary Disease (COPD) GI History: Denies: Hx Ulcer History: Reports: Other Problems/Disorders - gall stones Denies: Hx Renal Disease Musculoskeletal History: Denies: Hx Rheumatoid Arthritis Sensory History: Reports: Hx Contacts or Glasses Denies: Hx Hearing Aid Opthamlomology History: Reports: Hx Contacts or Glasses - Cancer History Hx Chemotherapy: No - Surgical History Surgery Procedure, Year, and Place: 1993 Hernia repair. gallbladder removed January 2013 Hx Anesthesia Reactions: No - Immunization History Hx Pertussis Vaccination: No Immunizations Up to Date: Yes Infectious Disease History: No Infectious Disease History: Denies: Hx Clostridium Difficile, Hx Hepatitis, Hx Human Immunodeficiency Virus (HIV), Hx of Known/Suspected MRSA, Hx Shingles, Hx Tuberculosis, Hx Known/ Suspected VRE, Hx Known/Suspected VRSA, History Other Infectious Disease, Traveled Outside the [place] in Last 30 Days - Family History Known Family History: Positive: None, Other - mother has ovarian cysts Negative: Hypertension - Social History Occupation: Employed Full-time Lives: With Family Alcohol Use: None Hx Substance Use: No Substance Use Type: Reports: None Hx Tobacco Use: No Smoking Status (MU): Former Smoker Type: Cigarettes Have You Smoked in the Last Year: No Review of Systems Constitutional: Negative Negative: Fever, Chills, Fatigue, Skin Diaphoresis Negative: Palpitations, Chest Pain Positive: Cough Negative: Abdominal Pain, Vomiting, Diarrhea, Nausea Genitourinary: Negative Positive: no symptoms reported, see HPI Negative: Arthralgia, Myalgia Skin: Negative Neurological: Negative Positive: Headache All Other Systems Reviewed And Are Negative: Yes Physical Exam Triage Information Reviewed: Yes Vital Signs On Initial Exam: Initial Vitals Temp Pulse Resp BP Pulse Ox 98.4 F 100 18 139/82 98 06/25/18 07:42 06/25/18 07:42 06/25/18 07:42 06/25/18 07:42 06/25/18 07:42 Vital Signs Reviewed: Yes Appearance: Positive: Well-Appearing, Well-Nourished Skin: Positive: Warm, Skin Color Reflects Adequate Perfusion Head/Face: Positive: Normal Head/Face Inspection Eyes: Positive: EOMI, JORDYN Respiratory/Lung Sounds: Positive: Rhonchi, Wheezes Cardiovascular: Positive: RRR, Pulses are Symmetrical in both Upper and Lower Extremities Musculoskeletal: Positive: Strength/ROM Intact Neurological: Positive: Speech Normal Psychiatric: Positive: Affect/Mood Appropriate AVPU Assessment: Alert Diagnostics - Vital Signs Vital Signs Temp Pulse Resp BP Pulse Ox 06/25/18 07:51 110 124/76 96 06/25/18 07:48 89 96 06/25/18 07:42 98.4 F 100 18 139/82 98 - Laboratory Lab Statement: Any lab studies that have been ordered have been reviewed, and results considered in the medical decision making process. Disposition - Course Course Of Treatment: Patient is evaluated for acute cough with intermittent production over the past 5-7 days. She denies any fevers, sweats, chills. She states she takes aspirin daily to prevent preeclampsia. Currently 28 weeks . She does endorse R sided back pain secondary to cough, but at this time there is a low suspician for PE as patient is currently on baby aspirin, denies SOB when not coughing, denies CP otherwise and tachy at 105. Discussed treatment options with the patient. Lungs are rhonchorous throughout and slightly wheezing. I have encouraged a chest x-ray as she is high risk for with her symptoms of tachycardia and cough 1 week. Patient agrees to this. Chest x-ray obtained and is negative for any acute cardiopulmonary findings. She is given albuterol inhaler and encouraged close follow-up with her [facility] TE[facility]. She is given robitussin while in the ED. She is tachy at 105, but otherwise VS stable. - Differential Dx - Cardiopulmonary Differential Diagnoses - Cardiopulmonary: Bronchitis, Other - Acute cough, cold symptoms, viral syndrome, pneumonia - Diagnoses Provider Diagnoses: Bronchitis Discharge - Sign-Out/Discharge Documenting (check all that apply): Patient Departure Patient Received Moderate/Deep Sedation with Procedure: No - Discharge Plan Condition: Stable Disposition: HOME Patient Education Materials: Cold Symptoms (ED) Forms: *Work Release Referrals: Mary Kay Limon MD [Primary Care Provider] - Additional Instructions: Please follow up with your OBGYN Albuterol inhaler as needed for cough You may take over the counter zinc, vitamin C and continue with your aspirin Drink plenty of fluids If cough remains persistent and severe, you may use over the counter robitussin Humidifier in the home will help - Billing Disposition and Condition Condition: STABLE Disposition: Home
[2018-06-25 09:09] VITALS: BP 114/77
== END 2018-06-25 09:09 | disposition home or self-care (01) ==
LOC: ED 07:40
DX: O26.893 Other specified pregnancy related conditions, third trimester (principal); J40 Bronchitis, not specified as acute or chronic; Z79.82 Long term (current) use of aspirin; Z3A.28 28 weeks gestation of pregnancy; Z87.891 Personal history of nicotine dependence
CPT/HCPCS: 71046; 99282; A9270-GY

== ENCOUNTER 2018-08-29 17:45 | Inpatient (IN) | payer OTHER ==
[2018-08-29] MEDS ORDERED: Buffered Lidocaine 1% SYRIN* 1 ML/SYRINGE INTRADERM ONE (18:06)
--- NOTE | 2018-08-29 18:23 | HP ---
General Information - Reason for Visit labor. Strong contractions every 2-3 min for past 2 hrs. Was 4 cm in office earlier today - General Information Maternal Age: 28 Grav: 4 Para: 3 SAB: 0 IEA: 0 Estimated Due Date: 09/14/18 Determined By: Early Ultrasound Gestational Age in Weeks/Days: 37 w 5 d Maternal Blood Type and Rh: O Positive - Results this Serology/RPR Result: Non-Reactive Rubella Result: Immune HBsAg Result: Negative HIV Result: Negative GBS Culture Result: Negative Past Medical History Delivery History: Hx Uncomplicated Vaginal Delivery - hx preeclampsia Past Medical History Comment: asthma eczema seasonal allergies Past Surgical History Comment: R inguinal hernia repair 1996 Lap maryanne 01/2013 Pertinent Family History: See Records Family History Comment: diabetes - Antepartal Records Antepartal Records: Reviewed, Complicated by: - with IUD in place, Review of Systems Constitutional: Uncomfortable CV Complaint: No Respiratory: Shortness of Breath: No Gastrointestinal: No Nausea/Vomiting, Normal Bowel Movement Genitourinary: No Leaking Fluid Musculoskeletal: Contractions Neurological: Headache - intermittent Movement: Normal Exam Allergies/Adverse Reactions: Allergies No Known Allergies Allergy (Verified 06/25/18 07:41) - Measurements Height: 5 ft 2 in Weight: 201 lb Weight in lbs: 201.995456 Body Mass Index (BMI): 36.7 Pre- Weight: 220 lb Weight Gained This : -19 lbs and 0 ozs - Exam Breast: - - soft, no masses Extremities: No Edema Heart: Normal Rhythm/Heart Sounds HEENT: No Significant Findings Lungs: Clear Bilaterally Reflexes: DTR 2+ Thyroid: No Thyromegaly - Ultrasound/Biophysical Profile Ultrasound Status: Not Done Targeted Exam Findings Estimated Weight: 6.5 lbs Cervical Exam: 5cm Effacement: 80% Station: 0 Presenting Part: Vertex Membrane Status: Intact EFM Findings - External Monitor Findings Baseline Heart Rate: 120 External Monitor Findings: Accelerations Present, No Pattern of Variable or Late Decelerations, Variability Moderate, Baseline Stable External Monitor Findings Comment: category 1 Contractions: Regular, Moderate, 45-90 Seconds Contraction Frequency: 3 min Assessment/Plan - Assessment multigravida at 37 w 5 d in active labor - Obstetrical Risk Factors Risk Factors Comment: IUD in place - Plan Plan: Admit - Anticipate Vaginal Delivery - wants epidural - Date/Time of Admission Date of Admission: 08/29/18 Time of Admission: 18:05
[2018-08-29 18:28] LABS: ABS Basophils 0.1 10^3/ul (0-0.2); ABS Eosinophils 0.2 10^3/ul (0-0.6); ABS Lymphocytes 2.5 10^3/ul (1.0-4.8); ABS Monocytes 0.5 10^3/ul (0-0.8); ABS Neutrophils 6.2 10^3/ul (1.5-7.7); Eosinophil % 2.2 %; Hematocrit 34 % (35-47); Hemoglobin 11.8 g/dL (12.0-16.0); Lymphocyte % 26.7 %; Mean Corpuscular HGB Conc 35 g/dL (31-36); Mean Corpuscular Hemoglobin 31 pg (27-31); Mean Corpuscular Volume 89 fL (80-97); Mean Platelet Volume 7.9 fL (7.4-10.4); Platelet Count 268 10^3/uL (150-450); Red Cell Distribution Width 14 % (10.5-15); White Blood Count 9.5 10^3/uL (3.5-10.8)
[2018-08-29] MEDS: Lactated Ringers 1000 ML Bag* 1,000 ML IV ONE ×3 (18:31→20:26)
--- NOTE | 2018-08-29 18:44 | PN ---
Progress Note - Progress Note Date of Service: 08/29/18 Note: Contractions every 2-3 min Cervix: 5-6 cm, 80%, vtx 0 AROM 1841 clear fluid Will consult re epidural when pt desires
[2018-08-29] MEDS ORDERED: Lactated Ringers 1000 ML Bag* 1,000 ML IV SCH ×3 (19:00→23:45)
[2018-08-29] MEDS ORDERED: OBEPIDURAL* 250 ML EPIDURAL ONE (19:13)
[2018-08-29] MEDS ORDERED: fentaNYL* 50 MCG/ML 2 ML VIAL (100 MCG VIAL) ONE (19:22)
[2018-08-29] MEDS ORDERED: Phenylephrine 40 MCG/ML SYRINGE IV PUSH PRN ×2 (19:47)
[2018-08-29] MEDS ORDERED: Lactated Ringers 1000 ML Bag* 1,000 ML IV ONE (19:47)
[2018-08-29] MEDS ORDERED: Sodium Citrate/Citric Acid* 15 ML UDC PO PRN (19:47)
[2018-08-29] MEDS ORDERED: Famotidine TAB* 20 MG PO PRN (19:47)
[2018-08-29] MEDS ORDERED: OBEPIDURAL* 250 ML EPIDURAL SCH (20:00)
[2018-08-29] MEDS ORDERED: diPHENhydraMINE IV* 50 MG/ML 1 ml VIAL (BENADRYL) IV PRN (20:14)
[2018-08-29] MEDS ORDERED: Ondansetron INJ* 2 MG/ML VIAL ONE (20:17)
[2018-08-29] MEDS ORDERED: diPHENhydraMINE IV* 50 MG/ML 1 ml VIAL (BENADRYL) ONE (20:17)
[2018-08-29] MEDS ORDERED: Oxytocin in LR* 20 UNITS/1,000 ML BAG IVPB SCH (21:00)
[2018-08-29] MEDS ORDERED: Glycerin ADULT SUPP PR PRN (23:41)
[2018-08-29] MEDS ORDERED: Witch Hazel PAD* JAR TOPICAL PRN (23:41)
[2018-08-29] MEDS ORDERED: Acetaminophen TAB* 325 MG PO PRN (23:41)
[2018-08-29] MEDS ORDERED: ceFOXitin 2 GM IVPREMIX* 2 GM/50 ML BAG IVPB ONE (23:50)
--- NOTE | 2018-08-30 00:04 | PROCNOTE ---
[facility] OB: Delivery Note - Delivery A Date of : 08/29/18 Time of : 22:53 [place] Sex: Male Score 1 Minute: 9 Score 5 Minutes: 9 Gestational Age in Weeks and Days at Delivery: 37 Weeks and 5 Days Delivery Method: Spontaneous Vaginal Labor: Spontaneous Did Patient attempt ?: N/A, No Previous Amniotic Fluid: Clear Estimated Blood Loss: 300 Anesthesia/Analgesia: CEI for Labor Anesthesia Comment: Dr. Burk Delivered By: Mara Quigley - Nursery Level of Nursery: Regular/Bedside - Perineum Perineal Injury: None/Intact - Events Delivery Events of Note: Retained Placenta, Manual Removal of Placenta - by Dr. Kwong - Additional Delivery Notes Additional Delivery Notes: SVB LMC, OA, over intact perineum at 2253. pink with stimulation. Cervix presenting at introitus immediately after delivery. No signs of placental separation by 10 minutes, pt not bleeding, but Dr. Kwong called to come in. Pt with episode of bleeding (100cc) at approx 2315, attempt at manual removal by me without success, but bleeding stopped. Manual removal of placenta by Dr. Kwong, see his note
[2018-08-30] MEDS: Ibuprofen TAB* 600 MG PO PRN ×4 (01:11→23:26)
[2018-08-30] MEDS: Oxytocin in LR* 20 UNITS/1,000 ML BAG IVPB SCH ×2 (01:30→08:21)
[2018-08-30 07:25] LABS: ABS Eosinophils 0.2 10^3/ul (0-0.6); ABS Monocytes 0.5 10^3/ul (0-0.8); ABS Neutrophils 6.9 10^3/ul (1.5-7.7); Eosinophil % 1.6 %; Hematocrit 29 % (35-47); Hemoglobin 9.9 g/dL (12.0-16.0); Lymphocyte % 21.1 %; Mean Corpuscular HGB Conc 34 g/dL (31-36); Mean Corpuscular Hemoglobin 30 pg (27-31); Mean Corpuscular Volume 90 fL (80-97); Mean Platelet Volume 7.6 fL (7.4-10.4); Platelet Count 223 10^3/uL (150-450); Red Blood Count 3.25 10^6 /uL (3.70-4.87); Red Cell Distribution Width 13 % (10.5-15); White Blood Count 9.6 10^3/uL (3.5-10.8)
[2018-08-30] MEDS: Docusate CAP* 100 MG PO SCH ×3 (08:21→20:38)
[2018-08-30] MEDS: Ferrous Gluconate TAB* 324 MG TAB PO SCH ×2 (11:00→20:38)
[2018-08-31] MEDS: Ibuprofen TAB* 600 MG PO PRN (08:24)
[2018-08-31] MEDS: Ferrous Gluconate TAB* 324 MG TAB PO SCH (08:24)
[2018-08-31] MEDS: Docusate CAP* 100 MG PO SCH (08:24)
[2018-08-31 14:41] VITALS: BP 118/55
== END 2018-08-31 13:23 | disposition home or self-care (01) | DRG 541 ==
LOC: MCHOBOUT 17:45 → MCHOB 18:05
PROVIDERS: ADMIT Midwife; ATTEND Midwife
PROC: 10E0XZZ Delivery of Products of Conception, External Approach (ICD-10-PCS; principal; 2018-08-29)
PROC: 10907ZC Drainage of Amniotic Fluid, Therapeutic from Products of Conception, Via Natural or Artificial Opening (ICD-10-PCS; 2018-08-29)
PROC: 10D17Z9 Manual Extraction of Products of Conception, Retained, Via Natural or Artificial Opening (ICD-10-PCS; 2018-08-29)
DX: O60.23X0 Term delivery with preterm labor, third trimester, not applicable or unspecified (principal); O72.2 Delayed and secondary postpartum hemorrhage; Z37.0 Single live birth; O90.81 Anemia of the puerperium; D64.9 Anemia, unspecified; Z3A.37 37 weeks gestation of pregnancy
CPT/HCPCS: 36415; 85025; 86850; 86900; 86901; A9270-GY; J0694; J1200; J2405; J3010

== ENCOUNTER → 2018-11-01 08:58 | Day surgery (SDC) | payer OTHER ==
[~2018-11-01 08:58] MED LIST: Buffered Lidocaine 1% SYRIN* 1 ML/SYRINGE INTRADERM ONE; Bupivacaine 0.5%* 50 ML VIAL ONE; Dexamethasone IV* 4 MG/ML 1 ML (4 MG) IV SLOW PU ONE; Dexamethasone IV* 4 MG/ML 1 ML (4 MG) ONE; DiMENhydriNATE IV* 50 MG/ML VIAL IV PUSH PRN; DiMENhydriNATE IV* 50 MG/ML VIAL ONE; Famotidine IV* 10 MG/ML 2 ML (20 mg) IV ONE; Famotidine IV* 10 MG/ML 2 ML (20 mg) ONE; Glycopyrrolate IV* 0.2 MG/ML 1 ML VIAL ONE; Lactated Ringers 1000 ML Bag* 1,000 ML IV SCH; Lidocaine 2% PF * 5 ML VIAL ONE; Midazolam* 1 MG/ML 2 ML VIAL (2 MG) ONE; Naloxone* 0.4 MG/ML 1 ML VIAL IV PRN; Neostigmine Methylsulfate* 3 MG/3 ML SYRINGE ONE; Propofol* 10 MG/ML 20 ML BTL ONE; Rocuronium* 10 MG/ML VIAL ONE; diPHENhydraMINE IV* 50 MG/ML 1 ml VIAL (BENADRYL) ONE; fentaNYL* 50 MCG/ML 2 ML VIAL (100 MCG VIAL) IV PRN; fentaNYL* 50 MCG/ML 2 ML VIAL (100 MCG VIAL) ONE
--- NOTE | 2018-11-01 13:13 | OP ---
DATE OF OPERATION: 11/01/18 - [facility] DATE OF : 89 SURGEON: Darren Kwong MD ANESTHESIA: General endotracheal tube. PRE-OP DIAGNOSIS: Permanent sterilization and retained placenta. POST-OP DIAGNOSIS: Permanent sterilization and retained placenta, lost IUD and pelvic omental adhesions. OPERATIVE PROCEDURE: D and C, hysteroscopy, MyoSure resection of retained placenta and laparoscopy, bilateral tubal fulguration, and removal of lost ICD from the peritoneum and adhesiolysis. FINDINGS: On exam under anesthesia, uterus had second-degree prolapse. Cervix , vagina, and vulva appeared normal. On hysteroscopy, in the posterior aspect of the uterine endometrium, there was increased tissue that appeared to be placental in origin, rest of the cavity appeared normal. On laparoscopy, the anterior bladder flap contained a foreign body reaction with what appeared to be an IUD and an IUD string sticking out of it. The uterus appeared normal. Both fallopian tubes normal. The ovaries appeared normal. DESCRIPTION OF PROCEDURE: The patient was identified, procedure identified as a D and C, hysteroscopy, MyoSure, and laparoscopic tubal ligation. The patient was taken to the operating room, prepped and draped in the usual fashion in the dorsal lithotomy position under general anesthesia. Two single-tooth tenaculums were placed on the anterior lip of the cervix. Cervix was easily dilated up to a #28 Lucian dilator. The hysteroscope was inserted. The above findings were noted. Using the MyoSure regular under direct visualization, the area of placental tissue was excised down to the level flushed with the endometrium. The hysteroscope was removed and a sharp curette was inserted and a sharp curettage performed with a good sample obtained. Cavity appeared clear once this had been done. All instruments were removed from the vagina. A sponge stick was placed for manipulation. A small infraumbilical incision made and the Veress needle inserted through this. The abdomen was insufflated to 15 mmHg. The Veress needle was removed and the trocar was inserted and second incision was made 2 cm above the pubic symphysis in the midline and a second trocar was inserted under direct visualization. Using the bipolar cautery the right fallopian tube was grasped in the midportion, followed to its fimbriated ends, and fulgurated x3. The omental adhesion was cauterized using the bipolar cautery. The string was grasped with grasping and with tension. The IUD was managed to be freed from the inflammatory reaction around it. Small amount of purulent appearing fluid was obtained, but it appeared to be inflammatory as opposed to bacterial in nature. IUD was removed as well as the string. The adhesion was then cut using scissors. The left fallopian tube was followed out to its fimbriated ends and fulgurated x3. Good hemostasis was verified. All instruments were removed from the abdomen. The abdomen was deflated of CO2. The skin was closed using skin glue. All instruments were removed from the vagina and the patient returned to the recovery room in stable condition. [id number]/[facility] #: [id number] NICOL
[2018-11-01 13:48] VITALS: BP 103/73
== END | disposition home or self-care (01) ==
LOC: OR 08:58
PROVIDERS: ATTEND Obstetrics & Gynecology
DX: O72.2 Delayed and secondary postpartum hemorrhage (principal); Z30.2 Encounter for sterilization; T83.89XA Other specified complication of genitourinary prosthetic devices, implants and grafts, initial encounter; N73.6 Female pelvic peritoneal adhesions (postinfective); Z87.891 Personal history of nicotine dependence; Z68.33 Body mass index [BMI] 33.0-33.9, adult
CPT/HCPCS: 81025; 88305; J1100; J1200; J1240; J2250; J2704; J2710; J3010; J3490

== ENCOUNTER 2019-05-29 16:43 | Emergency (ER) | payer OTHER ==
[2019-05-29] MEDS ORDERED: Ketorolac INJ* 30 MG/ML 1 ML VIAL IV PUSH ONE (19:00)
[2019-05-29] MEDS ORDERED: NS 0.9% 1000 ML** 2,000 ML IV ONE (19:00)
--- NOTE | 2019-05-29 19:06 | ED ---
GI/ HPI - HPI Summary HPI Summary: 29-year-old female presents with diarrhea today. It started this morning and has continued since. has been having diarrhea every 20 minutes. She took Imodium without any relief. she has cramping abd pain intermittently. No nausea vomiting. No fevers or chills. No cough. no one around her is sick. She works on peds. No recent travel. Has not eaten anything different. has not been on antibiotics recently. No medical conditions. - History of Current Complaint Chief Complaint: EDNauseaVomitDiarrh Time Seen by Provider: 05/29/19 18:50 Stated Complaint: ABD PAIN/DIARRHEA PER PT Hx Last Menstrual Period: 01/06/17 Pain Intensity: 4 - Allergy/Home Medications Allergies/Adverse Reactions: Allergies Allergy/AdvReac Type Severity Reaction Status Date / Time No Known Allergies Allergy Verified 05/29/19 20:06 PMH/Surg Hx/FS Hx/Imm Hx Endocrine/Hematology History: Reports: Hx Anemia Denies: Hx Diabetes, Hx Systemic Lupus Erythematosus, Hx Thyroid Disease Cardiovascular History: Denies: Hx Congestive Heart Failure, Hx Hypertension Respiratory History: Reports: Hx Asthma - A CHILD Denies: Hx Chronic Obstructive Pulmonary Disease (COPD) GI History: Denies: Hx Ulcer History: Denies: Hx Renal Disease, Other Problems/Disorders Musculoskeletal History: Denies: Hx Rheumatoid Arthritis Sensory History: Reports: Hx Contacts or Glasses - GLASSES Denies: Hx Hearing Aid Opthamlomology History: Reports: Hx Contacts or Glasses - GLASSES Psychiatric History: Reports: Hx Anxiety, Hx Depression - POST - Cancer History Hx Chemotherapy: No - Surgical History Surgery Procedure, Year, and Place: 1993 Hernia repair. gallbladder removed January 2013 Hx Anesthesia Reactions: No Infectious Disease History: No Infectious Disease History: Denies: Hx Clostridium Difficile, Hx Hepatitis, Hx Human Immunodeficiency Virus (HIV), Hx of Known/Suspected MRSA, Hx Shingles, Hx Tuberculosis, Hx Known/ Suspected VRE, Hx Known/Suspected VRSA, History Other Infectious Disease, Traveled Outside the [place] in Last 30 Days - Family History Known Family History: Positive: None, Other - mother has ovarian cysts Negative: Hypertension - Social History Alcohol Use: None Hx Substance Use: No Substance Use Type: Reports: None Hx Tobacco Use: No Smoking Status (MU): Former Smoker Type: Cigarettes Have You Smoked in the Last Year: No Review of Systems Negative: Fever Negative: Chest Pain Negative: Shortness Of Breath Positive: Abdominal Pain, Diarrhea. Negative: Vomiting, Nausea All Other Systems Reviewed And Are Negative: Yes Physical Exam Triage Information Reviewed: Yes Vital Signs On Initial Exam: Initial Vitals Temp Pulse Resp BP Pulse Ox 97.6 F 90 16 114/80 97 05/29/19 16:45 05/29/19 16:45 05/29/19 16:45 05/29/19 16:45 05/29/19 16:45 Vital Signs Reviewed: Yes Appearance: Positive: Well-Appearing Skin: Positive: Warm, Dry Head/Face: Positive: Normal Head/Face Inspection Eyes: Positive: Normal, Conjunctiva Clear ENT: Positive: Pharynx normal Respiratory/Lung Sounds: Positive: Clear to Auscultation, Breath Sounds Present Cardiovascular: Positive: Normal, RRR Abdomen Description: Positive: Nontender, Soft Bowel Sounds: Positive: Present Musculoskeletal: Positive: Normal Neurological: Positive: Normal Psychiatric: Positive: Normal Procedures - Sedation Patient Received Moderate/Deep Sedation with Procedure: No Diagnostics - Vital Signs Vital Signs Temp Pulse Resp BP Pulse Ox 05/29/19 16:45 97.6 F 90 16 114/80 97 - Laboratory Result Diagrams: 05/29/19 19:00 05/29/19 19:00 Lab Statement: Any lab studies that have been ordered have been reviewed, and results considered in the medical decision making process. Re-Evaluation - Re-Evaluation First Eval Re-Evaluation Time: 20:31 Change: Improved Comment: feeling better GIGU Course/Dx - Course Course Of Treatment: 29-year-old female presents with diarrhea today. It started this morning and has continued since. has been having diarrhea every 20 minutes. She took Imodium without any relief. she has cramping abd pain intermittently. No nausea vomiting. No fevers or chills. No cough. no one around her is sick. She works on peds. No recent travel. Has not eaten anything different. has not been on antibiotics recently. No medical conditions. On exam nontender abdomen. wbc normal. crp 9. Gave fluids and feeling better. c diff is negative. told to treat supportatively. patient understand and agrees with plan. - Diagnoses Differential Diagnoses - Female: Gastroenteritis (Viral), Gastroenteritis ( Bacterial), Urinary Tract Infection Provider Diagnoses: Abdominal pain, Diarrhea Discharge ED - Sign-Out/Discharge Documenting (check all that apply): Patient Departure - Discharge Plan Condition: Good Disposition: HOME Patient Education Materials: Acute Diarrhea (ED) Forms: *Work Release Referrals: Mary Kay Limon MD [Primary Care Provider] - Additional Instructions: Drink small amounts of fluid as tolerated When able to eat follow BRAT diet: Bananas, rice, applesauce, toast Take ibuprofen or Tylenol for pain as needed every 6 hours Follow up with primary within 5 days Return to ED if develop any new or worsening symptoms - Billing Disposition and Condition Condition: GOOD Disposition: Home
[2019-05-29 19:09] LABS: ABS Eosinophils 0.2 10^3/ul (0-0.6); ABS Monocytes 0.6 10^3/ul (0-0.8); ABS Neutrophils 7.3 10^3/ul (1.5-7.7); Eosinophil % 2.1 %; Hematocrit 42 % (35-47); Hemoglobin 14.5 g/dL (12.0-16.0); Lymphocyte % 19.7 %; Mean Corpuscular HGB Conc 35 g/dL (31-36); Mean Corpuscular Hemoglobin 30 pg (27-31); Mean Corpuscular Volume 88 fL (80-97); Mean Platelet Volume 7.3 fL (7.4-10.4); Nucleated Red Blood Cells % 0.1; Platelet Count 359 10^3/uL (150-450); Red Blood Count 4.79 10^6 /uL (3.70-4.87); Red Cell Distribution Width 14 % (10-15); White Blood Count 10.1 10^3/uL (3.5-10.8)
[2019-05-29 19:25] LABS: ALT 16 U/L (7-52); AST 18 U/L (13-39); Albumin 4.6 g/dL (3.2-5.2); Albumin/Globulin Ratio 1.4 (1-3); Alkaline Phosphatase 107 U/L (34-104); Anion Gap 8 mmol/L (2-11); BUN/Creatinine Ratio 22.2 (8-20); Blood Urea Nitrogen 12 mg/dL (6-24); C Reactive Protein 8.99 mg/L (<8.01); CO2 Carbon Dioxide 23 mmol/L (22-32); Chloride 107 mmol/L (101-111); EGFR African American 163.9 (>60); EGFR Non-African American 135.4 (>60); Globulin 3.2 g/dL (2-4); Glucose 94 mg/dL (70-100); Potassium 3.6 mmol/L (3.5-5.0); Sodium 138 mmol/L (135-145); Total Protein 7.8 g/dL (6.4-8.9)
[2019-05-29 19:31] LABS: HCG Pregnancy < 0.60 mIU/mL
[2019-05-29 20:37] LABS: Urine Appearance Clear; Urine Bilirubin Negative (Negative); Urine Blood Negative (Negative); Urine Color Yellow; Urine Glucose Negative (Negative); Urine Ketones Negative (Negative); Urine Nitrite Negative (Negative); Urine Protein Negative (Negative); Urine Specific Gravity 1.029 (1.010-1.030); Urine Urobilinogen Negative (Negative)
[2019-05-29 20:58] VITALS: BP 107/56
== END 2019-05-29 20:53 | disposition home or self-care (01) ==
LOC: ED 16:43
DX: R19.7 Diarrhea, unspecified (principal); R10.9 Unspecified abdominal pain; D64.9 Anemia, unspecified; F41.9 Anxiety disorder, unspecified; F32.9 Major depressive disorder, single episode, unspecified; Z90.49 Acquired absence of other specified parts of digestive tract; Z87.891 Personal history of nicotine dependence
CPT/HCPCS: 36415; 80053; 81003; 83690; 84702; 85025; 86140; 87045; 87046; 87493; 87899; 96361; 96374; 99283; J1885